=== PATIENT | male | born 1945 | race Caucasian/White ===

== ENCOUNTER 2020-09-05 12:46 | Inpatient (IN) | payer BC, MEDICARE ==
[~2020-09-05] VITALS: Ht 170.2 cm; Wt 86.1 kg
--- NOTE | 2020-09-05 12:54 | NUR ---
The patient, RUSH MCMULLEN, 74 y/o, M admitted by FIORELLA BALBUENA MD, was given written information regarding hospital policies, unit procedures and contact persons. Valuables were checked and VS taken, please see chart.
[2020-09-05 12:58] VITALS: BP 168/87
[2020-09-05] MEDS ORDERED: traMADol 50 MG TABLET PO PRN ×3 (13:15→21:00)
[2020-09-05] MEDS ORDERED: MAG HYDROX/AL HYDROX/SIMETH 30 ML ORAL.SUSP PO PRN (13:15)
[2020-09-05] MEDS ORDERED: ACETAMINOPHEN 325 MG TABLET PO PRN (13:15)
[2020-09-05] MEDS ORDERED: ZOLPIDEM 5 MG TABLET. PO PRN (13:15)
[2020-09-05 13:41] LABS: HEMATOCRIT 41.2 % (39.0-53.0); RED BLOOD COUNT 4.37 x10^6/uL (4.30-5.70); RED CELL DISTRIBUTION WIDTH 13.8 % (11.5-14.5); WHITE BLOOD COUNT 8.8 x10^3/uL (4.0-11.0)
[2020-09-05 13:56] LABS: ALBUMIN 3.3 g/dL (3.4-5.0); ALBUMIN/GLOBULIN RATIO 0.9 (1.0-1.7); C REACTIVE PROTEIN 24.9 mg/L (0-3.3); CALCIUM 8.7 mg/dL (8.5-10.1); GFR 73.2; POTASSIUM 4.1 mmol/L (3.5-5.1); TOTAL BILIRUBIN 0.5 mg/dL (0.2-1.0)
[2020-09-05] MEDS: VANCOMYCIN PER PHARMACY MC PRN (15:03)
--- NOTE | 2020-09-05 15:03 | NUR ---
Pharmacy Vancomycin Dosing Note S:Consulted to monitor and dose vancomycin started 09/05/20. O:RUSH MCMULLEN is a 74 year old M with cellulitis Height: 5 feet, 7 inches Weight: 86.1 kg LABS: Last BUN: 18 Last Creatinine: 1.0 Creatinine Clearance: 68.9 ML/MIN Last WBC: 8.8 Vancomycin Dosing: Loading Dose: 2000 mg x1 Dosing Weight: Actual Target Trough: 10-20 A: Based on: patient with cellulitis, goal trough of 10-20mcg/ml. Give 2gm loading dose then begin 1250mg q12h. Adjust based on trough level before 4th dose. P: 1. Begin Vancomycin 1250 mg IV q12h 2. Follow up Trough level on 09/06/20 at 2200 3. Pharmacy will continue to monitor, follow and adjust therapy as needed. WILLI VERAS, 09/05/20 0019
[2020-09-05] MEDS ORDERED: VANCOMYCIN 2 GM in IV NORMAL SALINE 500ML 500 ML IV ONE (15:30)
[2020-09-05 15:39] VITALS: BP 167/98
[2020-09-05] MEDS ORDERED: SERT25TA PO (16:46)
[2020-09-05] MEDS ORDERED: DONE5TAB7 PO (16:46)
[2020-09-05] MEDS ORDERED: METO100T7 PO (16:46)
[2020-09-05] MEDS ORDERED: LISI1TAB20 PO (16:46)
[2020-09-05] MEDS ORDERED: ATOR40TA59 PO (16:46)
[2020-09-05 19:03] VITALS: BP 124/79
[2020-09-05] MEDS ORDERED: HYDROcodone/APAP 7.5/325MG 1 TAB TABLET PO PRN (20:45)
[2020-09-05] MEDS: ATORVASTATIN CALCIUM 20 MG TABLET PO SCH (21:38)
[2020-09-05] MEDS: METOPROLOL TART IMMED RELEASE 50 MG TABLET PO SCH (21:38)
[2020-09-05] MEDS: VANCOMYCIN 1.25 GM in IV NORMAL SALINE 250ML 250 ML IV SCH (22:32)
[2020-09-05 22:50] VITALS: BP 133/72
[2020-09-06 05:35] VITALS: BP 145/80
--- NOTE | 2020-09-06 07:56 | RAD ---
EXAM: Bilateral toes, 3 views. HISTORY: Wounds. COMPARISON: None. FINDINGS: 3 views of both feet are obtained. There are soft tissue defects involving the bilateral gr eat toes due to reported wounds. There is slight lucency involving the underlying yayo of the first distal phalanges. However, the cortex appears intact in these locations. This favors a physiologic et iology rather than osteomyelitis. There is bilateral first metatarsophalangeal joint spurring. There is mild right greater than left hallux valgus. There are vascular calcifications. IMPRESSION: 1. Soft tissue defects involving the bilateral great toes. There is lucency involving the tuft of the first distal phalanges without a clear cortical defect to suggest osteomyelitis. Note is made that MRI is more sensitive for osteomyelitis. 2. Hawc-ui-[id number] bilateral first metatarsal phalangeal joint osteoarthritis. Electronically signed by: Arleth Sequeira MD (09/06/2020 7:54 AM) [id number]
--- NOTE | 2020-09-06 08:11 | RAD ---
EXAM: Bilateral lower extremity arterial Doppler sonogram. HISTORY: Toe wound. Peripheral vascular disease. Pain. Atherosclerosis. TECHNIQUE: Martinez scale and color Doppler sonographic imaging of the lower extremity arteries with spec tral analysis was performed. COMPARISON: None. FINDINGS: There are biphasic and triphasic waveforms throughout the lower extremity arteries, with ex ception of an abnormal monophasic waveform within the left dorsalis pedis artery. There are elevated peak systolic velocities within the right common femoral and proximal superficial femoral artery, gin suring 176 cm/s and 177 cm/s. The remainder of the lower extremity peak systolic velocities are demetria l. There is atherosclerotic plaque throughout the lower extremity arteries. IMPRESSION: 1. Doppler findings suggesting mild stenosis involving the right common femoral and proximal superfic ial femoral artery. 2. Monophasic waveform within the left dorsalis pedis artery suggesting hemodynamically significant p roximal stenosis. 3. Atherosclerotic plaque throughout the lower extremity arteries. There is no evidence of arterial o cclusion. Electronically signed by: Arleth Sequeira MD (09/06/2020 8:09 AM) [id number]
[2020-09-06] MEDS: METOPROLOL TART IMMED RELEASE 50 MG TABLET PO SCH ×2 (09:24→20:42)
[2020-09-06] MEDS: SERTRALINE 25 MG TABLET. PO SCH (09:24)
[2020-09-06] MEDS: DONEPEZIL HCL 5 MG TABLET. PO SCH (09:24)
[2020-09-06] MEDS: LISINOPRIL 20 MG TABLET PO SCH (09:25)
[2020-09-06] MEDS: VANCOMYCIN 1.25 GM in IV NORMAL SALINE 250ML 250 ML IV SCH ×2 (11:16→22:43)
[2020-09-06 11:25] VITALS: BP 137/92
[2020-09-06 15:14] VITALS: BP 134/72
[2020-09-06 19:10] VITALS: BP 123/74
[2020-09-06] MEDS: ATORVASTATIN CALCIUM 20 MG TABLET PO SCH (20:42)
--- NOTE | 2020-09-06 21:52 | PN ---
SUBJECTIVE: The patient is resting fairly comfortably. He has osteomyelitis in his left great toe. The patient has cortical defects. He is on IV vancomycin. PICC line to be placed. Continue on vancomycin. He says he is in less pain than he has been, although he does have decreased sensation there. OBJECTIVE: VITAL SIGNS: Blood pressure 137/92, respiratory rate 20, pulse 55, afebrile. GENERAL: The patient is alert and oriented. LUNGS: Diminished, but clear. CARDIOVASCULAR: stable. ABDOMEN: Soft. EXTREMITIES: Left toe less infected, less swelling up onto the foot itself. IMPRESSION: Osteomyelitis, lymphangitis, sepsis. PLAN: Continue with IV antibiotic therapy for now and make further evaluation on PICC line placement and outpatient therapy when stable. CANDIS/PRADEEP DR: CANDIS/tima TID: [id number]
[2020-09-06 22:26] LABS: VANC TR 17.7 mcg/mL (10.0-20.0)
[2020-09-06] MEDS: VANCOMYCIN PER PHARMACY MC PRN (22:34)
--- NOTE | 2020-09-06 22:36 | NUR ---
Pharmacy Vancomycin Dosing Note S:Consulted to monitor and dose vancomycin started 09/05/20. O:RUSH MCMULLEN is a 74 year old M with Cellulitis, . Height: 5 feet, 7 inches Weight: 86.1 kg Bells Body Weight: Adjusted Body Weight: Dosing Weight: Actual Other Antibiotics: LABS: Last BUN: 18 Last Creatinine: 1.0 Creatinine Clearance: 68.9 ML/MIN Last WBC: 8.8 Last Procalcitonin: Tmax (past 24 hours): Microbiology: I/O: Drug Levels: Last Trough level: 17.7 on 09/06/20 at 2205 Last dose given at Vancomycin Dosing: Loading Dose: 2000 mg x1 Dosing Weight: Actual Target Trough: 10-20 A: Based on: therapeutic vancomycin level, P: 1. Continue Vancomycin 1250 mg IV q12h 2. Follow up Trough level as needed. 3. Pharmacy will continue to monitor, follow and adjust therapy as needed. JEFFREY JIANG [facility], 09/06/20 [id number]
[2020-09-06 22:52] VITALS: BP 118/69
--- NOTE | 2020-09-06 23:52 | NUR ---
JAIRO FROM [facility] CALLED TO CONFIRM SHE WILL BE OUT IN THE MORNING TO PLACE PICC LINE.
[2020-09-07 05:23] VITALS: BP 119/58
[2020-09-07] MEDS: SERTRALINE 25 MG TABLET. PO SCH (08:15)
[2020-09-07] MEDS: DONEPEZIL HCL 5 MG TABLET. PO SCH (08:15)
[2020-09-07] MEDS: METOPROLOL TART IMMED RELEASE 50 MG TABLET PO SCH ×2 (08:18→21:12)
[2020-09-07] MEDS: LISINOPRIL 20 MG TABLET PO SCH (08:19)
[2020-09-07 11:06] VITALS: BP 130/77
[2020-09-07] MEDS ORDERED: VANC1.2529 IV (11:35)
[2020-09-07] MEDS ORDERED: ZOLP5TAB PO (11:35)
[2020-09-07] MEDS ORDERED: HYDR-2765 PO (11:35)
[2020-09-07] MEDS ORDERED: TRAM50TA PO (11:35)
--- NOTE | 2020-09-07 11:39 | DISCH ---
HOME HEALTH DISCHARGE/MEDS DISCHARGE INFORMATION: Discharge Date: Sep 07, 2020 Final Diagnosis: Osteomylitis left foot Condition on Discharge: Stable CODE STATUS: Code Status: Full HOME HEALTH: Face to Face: I certify this patient is under my care and that I, or a nurse practitioner or physician's post production assistant working with me, had a face to face encounter that meets the physician face to face encounter requirements with this patient on [place] Medical Condition(s): Other (osteomylitis) [facility] For: Medication Management, Pain Management, Wound Care Homebound Status Met By: Unsteady balance w/ amb, POST DISCHARGE ORDERS: Activity Instructions for Disc: Activity as tolerated Weight Bearing Status after Di: No restrictions CERTIFICATION STATEMENT: Certification Statement: Based on the above finding, I certify that this patient is confined to the home and needs intermittent senior living care, physical therapy and/or speech therapy, or continues to need occupational therapy.~ This patient is under my care, and I have initiated the establishment of the plan of care.~ This patient will be followed by myself or a community physician who will periodically review the plan of care. DISCHARGE MEDICATIONS: Home Meds Reported Medications Sertraline Hcl (ZOLOFT) 25 Mg Tablet, 1 TAB PO DAILY for ., #30 TAB 2 Refills 09/05/20 Atorvastatin Calcium (ATORVASTATIN CALCIUM) 40 Mg Tablet, 1 TAB PO QHS for ., #90 TAB 3 Refills 09/05/20 Lisinopril/Hydrochlorothiazide (LISINOPRIL-HCTZ 20-25 MG TAB) 1 Each Tablet, 1 TAB PO DAILY for ., #30 TAB 5 Refills 09/05/20 Metoprolol Tartrate (METOPROLOL TARTRATE) 100 Mg Tablet, 1 TAB PO BID for ., #60 TAB 5 Refills 09/05/20 Donepezil Hcl (DONEPEZIL HCL) 5 Mg Tablet, 1 TAB PO DAILY for ,, #30 TAB 5 Refills 09/05/20 FIORELLA BALBUENA MD Sep 07, 2020 11:39
--- NOTE | 2020-09-07 12:24 | RAD ---
EXAM: Chest, single view. HISTORY: PICC line placement. COMPARISON: None. FINDINGS: A frontal view of the chest is obtained. There is no infiltrate, pleural effusion or pneumo thorax. The heart is normal in size. There is a right PICC with the tip in the superior vena cava. IMPRESSION: No acute pulmonary finding. Right PICC with the tip in the superior vena cava. Electronically signed by: Arleth Sequeira MD (09/07/2020 12:22 PM) [id number]
[2020-09-07] MEDS: VANCOMYCIN 1.25 GM in IV NORMAL SALINE 250ML 250 ML IV SCH ×2 (12:31→21:13)
--- NOTE | 2020-09-07 15:22 | NUR ---
RN has been keeping patient and patients updated on POC. Case management working with patients insurance company to see what it will cost for patient to do outpatient antibiotics in order to let patient know cost of HH with infusions versus coming into [place] for outpatient antibiotic. systems software managermanager crisis to nurse that she is waiting return call from insurance company with information. RN has discussed this with patient and his several times. came out to nurses station wanting to know if he can leave since doctor has placed discharge order this morning. RN offered for patient to leave but be brought back in tonight for 2230 dose. stated she didn't want to drive that late. Offered patient to stay tonight and leave after 2230 dose, still does not want to drive that late. Offered to let patient stay another night so that does not have to drive, states she doesn't want to have to pay for another night. asked if he could leave and skip tonights dose. RN tried to provide education about skipping these doses but becoming increasingly agitated and interrupting patient. Demanding to talk to the rn field case manager, will not allow nurse to finish talking. RN informed that rn field case manager does not have any more information to provide to patient that what I have as Shante been staying in touch with rn field case manager and that she will come in and talk with them once insurance gets back with her and we have information to give. Explained that we are trying to get the information in order to prevent the patient from getting a surprise large bill. being disrespectful waving nurse off and interrupting nurse. Nurse told "we are done with this conversation" To patient nurse said "If you have any questions or would like to continue this conversation I would be happy to do that with you." Pts understanding and apologizing to nurse for behavior. Patient is willing to stay tonight and get the dose tonight and tomorrow morning. Dr Echeverria called nurse for update stating the has called the office several times. RN updated Dr Echeverria on situation with insurance, the care options provided to at this time and her unhappiness with all options. Dr Echeverria verbalized understanding. systems software manager has been asked to call patient with information, states she is leaving to go talk to doctors office about this RNs rude behavior with "dismissing her and only talking to her ."
[2020-09-07 15:49] VITALS: BP 169/89
--- NOTE | 2020-09-07 16:04 | NUR ---
assistant sales center manager notified RN that HH has been set up for patient to get infusions at home. assistant sales center manager talked with patients , the plan is for patient to stay tonight, get tonights dose and get the mornings dose around 0800 then discharge after that. RN informed patient of this plan, wrote it all on a sticky note for patient to refer to.
[2020-09-07 19:00] VITALS: BP 165/87
[2020-09-07] MEDS: ATORVASTATIN CALCIUM 20 MG TABLET PO SCH (21:12)
[2020-09-07 23:35] VITALS: BP 127/76
[2020-09-08 05:12] VITALS: BP 150/92
--- NOTE | 2020-09-08 05:30 | NUR ---
Assumed care of pt at 1900; A&O, forgetful at times, VSS; PICC line present to left upper arm, dressing intact, no s/s of infection noted, Vancomycin infused with no problems noted, site flushed and capped as per protocol; open area noted to left great toe to area left lateral of toenail; area cleansed with wound wash, dressing applied with xeroform guaze, telfa, and tape; denies any pain or numbness to area; plan to dismiss to home after a.m. dose of Vanco infused with continued home IV therapy, verbalized understanding; no voiced needs or concerns; slept well throughout the night; siderails up x2, call pittman within reach.
[2020-09-08 05:38] VITALS: BP 154/83
--- NOTE | 2020-09-08 07:14 | PN ---
SUBJECTIVE: The patient is a 74-year-old male with cellulitis, osteomyelitis of his left great toe. The patient is still receiving IV vancomycin ____ get clearance from insurance about the vancomycin and home infusion therapy. PICC line was placed. Otherwise, doing reasonably well, shows improvement overall on that issue there. OBJECTIVE: VITAL SIGNS: Blood pressure 170/90, respiratory rate 18, pulse 60, afebrile. GENERAL: The patient is alert and oriented. LUNGS: Diminished. NEUROLOGIC: The patient does have some mild dementia. EXTREMITIES: Left toe seems to be slightly improved swelling to the left foot ____. IMPRESSION: Osteomyelitis of the left great toe, cellulitis of the left great toe. PLAN: As above. Continue to monitor the patient, accordingly make further evaluation on him ____ indicated for IV infusion set up. CANDIS/KITA/JAMEEL DR: Rain TID: [id number]
--- NOTE | 2020-09-08 07:20 | NUR ---
Wound Care Wound Type/Assessment: patient seen per wound care consult. see wound assessment. patient has a left great toe wound that per Dr. Echeverria is positive for osteomyelitis, the wound was cleaned, measured and redressed with recommendations of iodoflex with an nonadherent foam and tape, change every 2-3 days. Treatment Recommendations/Plan: Recommendations of the left great toe wound dressings- cleanse the wound then apply Iodoflex with a nonadherent foam with tape, change every 2-3 days. patient also has a hard thick callous on the right great toe- no drainage or open wound at this time. Education provided: Educated patient about the wound clinic and dressings- extra Iodoflex left in the room with the patient, and not to get shower water in the wound. Offloading surface/device: Recommendations of patient not putting any weight on the left great toe d/t the wound. Discharge Recommendations for dressings: patient would benefit following up in the outpatient wound clinic. notified RN about the POC and wound care will continue to f/u.
[2020-09-08] MEDS: LISINOPRIL 20 MG TABLET PO SCH (08:09)
[2020-09-08] MEDS: SERTRALINE 25 MG TABLET. PO SCH (08:09)
[2020-09-08] MEDS: DONEPEZIL HCL 5 MG TABLET. PO SCH (08:09)
[2020-09-08 08:10] VITALS: BP 154/83
[2020-09-08] MEDS: METOPROLOL TART IMMED RELEASE 50 MG TABLET PO SCH (08:10)
[2020-09-08] MEDS: VANCOMYCIN 1.25 GM in IV NORMAL SALINE 250ML 250 ML IV SCH (08:12)
--- NOTE | 2020-09-08 10:24 | NUR ---
Discharge Summary Patient read discharge instructions, all questions answered in full, patient handed discharge packet and hard script given. Instructions given over PICC line care. PICC left in place for continued IVABX. No other acute concerns, patient walked out with sister.
--- NOTE | 2020-09-10 14:22 | DS ---
HOSPITAL COURSE: He is a 74-year-old gentleman came in with sepsis, cellulitis, osteomyelitis of the left great toe. The patient received IV vancomycin as he had failed outpatient therapy. The patient had remained in the hospital to ____ PICC line as well as have insurance set up IV infusion for him at home. Overall, he made continued good progress during the rest of his hospitalization. His white count was 8.8, hemoglobin 14 and hematocrit 41. The patient's sodium 143, potassium 4.1, BUN 18 and creatinine 1. GFR 73. Lactic acid was elevated at 2.2. C-reactive protein 25. In any case, the patient made good progress. IMPRESSION: Sepsis, osteomyelitis of the left great toe and cellulitis of the left foot with lymphangitis, moderate protein malnutrition, hyperglycemia. Continue IV antibiotic therapy anywhere from 4-6 weeks to be reevaluated as well follow up possibly with Orthopedics and make further evaluation on him and progress made with the antibiotic therapy. CANDIS/JOSELINE/TEX DR: Rain TID: [id number]
== END 2020-09-08 10:10 | disposition home health service (06) | DRG 872 ==
LOC: 1 SOUTH 12:46
PROVIDERS: ADMIT Family Medicine; ATTEND Family Medicine
PROC: 02HV33Z Insertion of Infusion Device into Superior Vena Cava, Percutaneous Approach (ICD-10-PCS; principal; 2020-09-06)
DX: A41.9 Sepsis, unspecified organism (principal); M86.8X7 Other osteomyelitis, ankle and foot; L03.116 Cellulitis of left lower limb; E44.0 Moderate protein-calorie malnutrition; L03.032 Cellulitis of left toe; Z68.29 Body mass index [BMI] 29.0-29.9, adult; I10 Essential (primary) hypertension; Z80.9 Family history of malignant neoplasm, unspecified
CPT/HCPCS: 36415; 71045; 73660; 80053; 80202; 83605; 85027; 86140; 93923; J3370; J7040; J7050